=== PATIENT | male | born 1990 | race Caucasian/White ===

== ENCOUNTER 2016-11-09 04:11 | Emergency (ER) | payer OTHER ==
[~2016-11-09] VITALS: Ht 180.3 cm; Wt 93.0 kg
[2016-11-09] MEDS ORDERED: TDAP [DIPH/PERTUSSIS/TET] 0.5 ML VIAL IM ONE ×2 (04:45→05:00)
--- NOTE | 2016-11-09 04:52 | NUR ---
PT AMBUALTORY TO ER BED 4BB SELF; PT STATES EPISODE OF PASSING OUT IN BATHROOM X 1 HR SENIOR TRAINING AND DEVELOPMENT REP LACERATION NOTED ON FOREHEAD. PT AOX4 RR EVEN AND UNLABORED. NO SOB NOTED. NAD NOTED. NO NVD AT THIS TIME. PT GOWNED AND PT WAITING FOR MD BELL.
--- NOTE | 2016-11-09 04:54 | NUR ---
Note undone in EDM - 11/09/16 at 0519 by GALO PT AMBUALTORY TO ER BED 4BB SELF; PT STATES EPISODE OF PASSING OUT IN BATHROOM X 1 HR OPENER LACERATION NOTED ON FOREHEAD. PT AOX4 RR EVEN AND UNLABORED. NO SOB NOTED. NAD NOTED. NO NVD AT THIS TIME. PT GOWNED AND PT WAITING FOR MD BELL.
--- NOTE | 2016-11-09 04:54 | NUR ---
DR. LAGUNA AT BEDSIDE FOR LAC REPAIR.
[2016-11-09] MEDS ORDERED: LIDOCAINE 1%-EPI 1:100,000 20 ML VIAL TP ONE (05:00)
--- NOTE | 2016-11-09 05:19 | NUR ---
PT REFUSED LAB DRAW. DR. LY AT BEDSIDE. RISK AND BENEFITS EXPLAINED X 3.
[2016-11-09 05:34] VITALS: BP 132/68
--- NOTE | 2016-11-09 05:34 | NUR ---
Patient discharged to home in stable condition. Written and verbal after care instructions given. Patient verbalizes understanding of instruction. ambulatory with a steady gait
== END 2016-11-09 05:35 | disposition home or self-care (01) ==
LOC: ER 04:11
DX: R55 Syncope and collapse (principal); S01.81XA Laceration without foreign body of other part of head, initial encounter; X58.XXXA Exposure to other specified factors, initial encounter; Y93.89 Activity, other specified; Y92.89 Other specified places as the place of occurrence of the external cause; Y99.8 Other external cause status
CPT/HCPCS: 90715; A4606; Z7610